=== PATIENT | male | born 1965 | race African-American/Black ===

== ENCOUNTER 2018-07-14 19:49 | Emergency (ER) | payer OTHER ==
[2018-07-14 20:19] LABS: #Basophils 0.1 thou/uL (0.0-0.2); #Eosinphils 0.1 thou/uL (0.0-0.7); #Lymphocytes 2.1 thou/uL (1.20-3.40); #Monocytes 0.3 thou/uL (0.11-0.59); %Basophils 1.5 % (0.0-1.0); %Lymphocytes 45.9 % (21.0-51.0); %Monocytes 5.8 % (0.0-10.0); %Neutrophils 43.8 % (42.0-75.0); Hemoglobin 13.5 g/dL (14.0-18.0); Mean Corpuscular Hemoglobin 30.2 pg (27.0-31.0); Mean Corpuscular Volume 94.4 fL (78.0-98.0); Mean Platelet Volume 7.5 fL (7.4-10.4); Platelet Count 288 thou/uL (130-400); RBC Distribution Width 12.2 % (11.5-14.5); Red Blood Cell (RBC) Count 4.48 mill/uL (4.70-6.10); White Blood Cell (WBC) Count 4.6 thou/uL (4.8-10.8)
--- NOTE | 2018-07-14 20:29 | RAD ---
RADIOGRAPH CHEST 2 VIEW: DATE: 07/14/2018 HISTORY: 52-year-old male with dyspnea FINDINGS: There is no airspace density, pulmonary edema, pleural effusion, or pneumothorax. IMPRESSION: No acute pulmonary findings.
[2018-07-14 20:42] LABS: ALT (SGPT) 23 U/L (8-55); AST (SGOT) 21 U/L (5-34); Alkaline Phosphatase 62 U/L (40-150); Anion Gap 10 mmol/L (10-20); BUN (Urea Nitrogen) 14 mg/dL (8.9-20.6); Bilirubin, Total 0.5 mg/dL (0.2-1.2); Calc. Creatinine Clearance 0 mL/min (70-130); Calcium 9.6 mg/dL (7.8-10.44); Carbon Dioxide 28 mmol/L (22-29); Chloride 107 mmol/L (98-107); Estimated GFR-MDRD 78; Globulin 2.9 g/dL (2.4-3.5); Glucose 95 mg/dL (70-105); Potassium 3.6 mmol/L (3.5-5.1); Protein, Total 6.9 g/dL (6.0-8.3); Sodium 141 mmol/L (136-145)
--- NOTE | 2018-07-18 11:09 | EKG ---
Test Reason : Blood Pressure : / mmHG Vent. Rate : 061 BPM Atrial Rate : 061 BPM P-R Int : 140 ms QRS Dur : 096 ms QT Int : 408 ms P-R-T Axes : -18 -21 -20 degrees QTc Int : 410 ms Normal sinus rhythm Septal infarct , age undetermined Possible Lateral infarct , age undetermined Abnormal ECG Confirmed by CHICA SANTOS M.D. ([id number]), editor greeting card AVANI NAGEL ([id number]) on 07/18/2018 11:08:39 AM Referred By: Confirmed By:CHICA SANTOS M.D.
== END 2018-07-14 21:52 ==
LOC: ERS 19:49 → EEVIPCON 19:49 → ERS 21:52
DX: R06.02 Shortness of breath (principal); J44.9 Chronic obstructive pulmonary disease, unspecified; F43.10 Post-traumatic stress disorder, unspecified; F31.9 Bipolar disorder, unspecified
CPT/HCPCS: 36415; 71046; 80053; 83880; 84484; 85025; 93005; 94640; J7620